=== PATIENT | female | born 1945 | race Caucasian/White ===

== ENCOUNTER 2016-09-23 11:56 | Emergency (ER) | payer OTHER ==
[2016-09-23] MEDS ORDERED: NOREPINEPHRINE BITARTRATE 250 ML IV ONE (11:57)
[2016-09-23] MEDS ORDERED: SODIUM BICARBONATE 8.4% INJ 50ML SYRINGE ONE (12:13)
[2016-09-23] MEDS ORDERED: NOREPINEPHRINE BITARTRATE 250 ML IV SCH (12:30)
[2016-09-23] MEDS ORDERED: PHENYLEPHRINE INJ 20 MG in SODIUM CHL 0.9% 248 ML IV ONE (12:30)
[2016-09-23 13:55] LABS: Basophils # (auto) 0 uL; Basophils % (auto) 0.2 % (0.0-2.0); DEFINITIVE VIEW TRANSMISSION; Eosinophils # (auto) 0.1 uL; Eosinophils % (auto) 0.4 % (0.0-7.0); Hematocrit 21.4 % (36.0-46.0); Lymphocytes # (auto) 1.7 uL; Lymphocytes % (auto) 10.1 % (10.0-50.0); Mean Corpuscular Hemoglobin 29.8 pg (28.0-32.0); Mean Corpuscular Hgb Conc. 31.5 g/dL (32.0-36.0); Mean Corpuscular Volume 94.5 fL (80.0-100.0); Mean Platelet Volume 9.1 fL (7.4-10.4); Monocytes # (auto) 0.2 uL; Monocytes % (auto) 1.3 % (0.0-12.0); Neutrophils # (auto) 15.2 uL; Platelet Count (auto) 232 10^3/uL (140-450); Red Cell Distribution Width 17.5 % (11.6-16.0); SUSPECT VIEW TRANSMISSION; White Blood Cell 17.2 10^3/uL (4.4-10.8)
[2016-09-23 14:18] LABS: Lactic Acid w/Reflex 21.5 mmol/L (0.4-2.0)
[2016-09-23 14:19] LABS: REFLEX LACTIC ACID YES OR NO YES
[2016-09-23 14:21] LABS: BUN/Creatinine Ratio 18.8; Bilirubin, Total 0.7 mg/dL (0.2-1.0); Calcium 8.3 mg/dL (8.5-10.1); Total Protein 6.3 g/dL (6.4-8.2)
[2016-09-23 14:26] LABS: Magnesium 4.1 mg/dL (1.6-2.6); Potassium 5.9 mmol/L (3.5-5.1)
[2016-09-23 14:32] VITALS: BP 81/43
[2016-09-23 14:34] LABS: Hemoglobin 6.8 g/dL (12.2-16.2)
[2016-09-23] MEDS ORDERED: FUROSEMIDE 40 MG/4 ML VIAL ONE (14:43)
== END 2016-09-23 14:40 | disposition short-term general hospital (02) ==
LOC: ER 12:10 → EDBD 12:10 → ER 14:40
DX: J96.00 Acute respiratory failure, unspecified whether with hypoxia or hypercapnia (principal); I62.00 Nontraumatic subdural hemorrhage, unspecified; J44.9 Chronic obstructive pulmonary disease, unspecified; E11.9 Type 2 diabetes mellitus without complications; N18.9 Chronic kidney disease, unspecified
CPT/HCPCS: 36415; 36600; 51702; 70450; 71010; 71250; 80053; 82805; 83605; 83735; 84484; 85025; 87040; 87070; 87077; 87186; 87205; 92950; 93005; 94002; 99291; J1940; J2370; J3490; J7050